=== PATIENT | female | born 1970 | race Caucasian/White ===

== ENCOUNTER 2017-10-02 23:34 | Emergency (ER) | payer OTHER ==
[~2017-10-02] VITALS: Ht 175.3 cm; Wt 47.6 kg
[2017-10-02 23:42] VITALS: BP 115/92
== END 2017-10-03 04:56 | disposition left against medical advice (07) ==
LOC: EDBD 23:34 → ER 23:39
DX: R11.2 Nausea with vomiting, unspecified (principal); Z53.21 Procedure and treatment not carried out due to patient leaving prior to being seen by health care provider